=== PATIENT | female | born 1965 | race Caucasian/White ===

== ENCOUNTER 2018-04-09 00:10 | Emergency (ER) | payer SELFPAY ==
[~2018-04-09] VITALS: Ht 162.6 cm; Wt 51.7 kg
[2018-04-09] MEDS ORDERED: MORPHINE 4 MG/ML INJ. SYRINGE IVP ONE (00:15)
[2018-04-09] MEDS ORDERED: PROCHLORPERAZINE EDISYLATE 10 MG/2 ML VIAL IVP ONE (00:15)
[2018-04-09 00:18] VITALS: BP_SYST 139
[2018-04-09 06:30] VITALS: BP_SYST 133
== END 2018-04-09 06:30 | disposition home or self-care (01) ==
LOC: SED 00:10
DX: G43.909 Migraine, unspecified, not intractable, without status migrainosus (principal); Z59.0 Homelessness
CPT/HCPCS: 96374; 96375; 99283; J0780; J2270

== ENCOUNTER 2019-10-07 06:29 | Emergency (ER) | payer BC, SELFPAY ==
[~2019-10-07] VITALS: Ht 165.1 cm; Wt 49.9 kg
[2019-10-07 06:42] VITALS: BP_SYST 108
--- NOTE | 2019-10-07 06:46 | NUR ---
Placed in room 5 . To gown for exam. Side rails up.
--- NOTE | 2019-10-07 06:50 | NUR ---
ER at bedside examining patient.
--- NOTE | 2019-10-07 06:55 | NUR ---
Pt bib by [employer] and placed on 5150 for SI x today. Pt also reports cough x 2 months. Pt was taken to [facility] but was sent to [facility] for clearence and COVID test. Pt asked if she had a plan, pt states no current plan but formulating a plan. As per 5150 pt has a hx of depression and has not taken her meds. Denies PMH.
--- NOTE | 2019-10-07 06:57 | NUR ---
Security wanded patient.
--- NOTE | 2019-10-07 06:59 | NUR ---
COVID SWAB SENT TO LAB.
--- NOTE | 2019-10-07 07:05 | NUR ---
Report given to MARY Torrez and MARY Garza for continuation of care.
--- NOTE | 2019-10-07 07:10 | NUR ---
report received from Monica HERNANDEZ. Pt is in stable condition
--- NOTE | 2019-10-07 07:30 | NUR ---
PT RESTING COMFORTABLY IN BED, V/S STABLE. DENIES ANY PAIN
[2019-10-07 07:40] LABS: BASOPHILS % (AUTO) 0.8 % (0.0-2.0); EOSINOPHILS # (AUTO) 0.1 K/uL (0.0-0.4); EOSINOPHILS % (AUTO) 1.5 % (0.0-4.0); HEMOGLOBIN 14.7 g/dL (12.0-16.0); LYMPHOCYTES % (AUTO) 42.6 % (20.5-51.5); MEAN CORPUSCULAR HEMOGLOBIN 29 pg (27-31); MEAN CORPUSCULAR HGB CONC 32 % (32-36); MEAN CORPUSCULAR VOLUME 90 fL (79.0-98.0); MONOCYTES # (AUTO) 0.4 K/uL (0.0-1.0); MONOCYTES % (AUTO) 7.9 % (1.7-9.3); NEUTROPHILS # (AUTO) 2.2 K/uL (1.8-7.7); NEUTROPHILS % (AUTO) 47.2 % (40.0-70.0); PLATELET COUNT (AUTO) 161 K/uL (130-430); RED BLOOD CELL COUNT(AUTO) 5.13 MIL/uL (4.2-6.2); RED CELL DISTRIBUTION WIDTH 14.5 % (9.0-15.0); WHITE BLOOD COUNT (AUTO) 4.7 K/uL (4.8-10.8)
[2019-10-07 08:15] LABS: ANION GAP 7 (5-15); CALCIUM 9.8 mg/dL (8.4-11.0); CHLORIDE 104 mmol/L (98-107); CREATININE 0.85 mg/dL (0.55-1.30); GLUCOSE 94 mg/dL (70-99); POTASSIUM 3.6 mmol/L (3.5-5.1); SODIUM SERUM 137 mmol/L (136-145); UREA NITROGEN, BLOOD 15 mg/dL (8-21)
[2019-10-07 08:17] LABS: GFR AFRICAN AMERICAN 89 mL/min (>90)
--- NOTE | 2019-10-07 08:30 | NUR ---
PT RESTING COMFORTABLY IN BED, V/S STABLE. DENIES ANY PAIN
[2019-10-07 08:34] LABS: ACETAMINOPHEN 6 ug/mL (1-30); ALANINE AMINOTRANSFERASE 36 U/L (12-78); ALBUMIN 3.4 g/dL (3.4-4.8); ALCOHOL, BLOOD < 3 mg/dL (<10); ASPARTATE AMINOTRANSFERASE 35 U/L (10-37); FREE T4 (FREE THYROXINE) 1.2 ng/dl (0.8-1.5); THYROID STIMULATING HORMONE 0.97 uIu/mL (0.36-3.74); TOTAL BILIRUBIN 0.4 mg/dL (0.0-1.0)
[2019-10-07 08:36] LABS: BILIRUBIN,URINE NEGATIVE (NEGATIVE); BLOOD, URINE NEGATIVE (NEGATIVE); COLOR,URINE YELLOW (YELLOW); GLUCOSE,URINE NEGATIVE (NEGATIVE); KETONES,URINE NEGATIVE (NEGATIVE); LEUKOCYTE ESTERASE ,URINE TRACE (NEGATIVE); NITRITE, URINE NEGATIVE (NEGATIVE); PROTEIN URINE NEGATIVE (NEGATIVE); UROBILINOGEN,URINE 0.2 (0.2-1.0)
--- NOTE | 2019-10-07 08:48 | NUR ---
BREAKFAST TRAY GIVEN TO PT, EATING IN BED
--- NOTE | 2019-10-07 09:00 | NUR ---
PT ATE 100% OF BREAKFAST TRAY
[2019-10-07 09:02] LABS: BARBITURATE, URINE NEGATIVE (NEG <=200); BENZODIAZEPINE, URINE NEGATIVE (NEG <=150); CANNABINOID, URINE POSITIVE (NEG <=50); COCAINE, URINE NEGATIVE (NEG <=150); METHAMPHETAMINES SCREEN,URINE NEGATIVE (NEG <=500); OPIATE, URINE NEGATIVE (NEG <=100); PHENCYCLIDINE SCREEN,URINE NEGATIVE (NEG <=25); UR TRICYCLIC ANTIDEPRESSANTS NEGATIVE (NEG <=300); URINE AMPHETAMINE POSITIVE (NEG <=500); URINE METHADONE NEGATIVE (NEG <=200); URINE OXYCODONE SCREEN NEGATIVE (NEG <=100); URINE PROPOXYPHENE SCREEN NEGATIVE (NEG <=300)
[2019-10-07 09:06] LABS: CLARITY/URINE CLOUDY (CLEAR)
[2019-10-07 09:08] LABS: BACTERIA,URINE RARE /HPF (None Seen); RBC,URINE 0-3 /HPF (0-3)
[2019-10-07 09:09] LABS: URINE AMORPHOUS PHOSPHATES 4+ /HPF (None Seen)
--- NOTE | 2019-10-07 09:30 | NUR ---
PT RESTING COMFORTABLY IN BED, V/S STABLE. DENIES ANY PAIN
--- NOTE | 2019-10-07 10:28 | NUR ---
DR. BELLAMY AT THE BEDSIDE
--- NOTE | 2019-10-07 10:30 | NUR ---
PT RESTING COMFORTABLY IN BED, V/S STABLE.
--- NOTE | 2019-10-07 11:30 | NUR ---
PT RESTING COMFORTABLY IN BED, V/S STABLE. DENIES ANY PAIN
--- NOTE | 2019-10-07 12:30 | NUR ---
PT RESTING COMFORTABLY IN BED SLEEPING
--- NOTE | 2019-10-07 13:30 | NUR ---
PT RESTING COMFORTABLY IN BED, NO S/SX OF DISTRESS
--- NOTE | 2019-10-07 13:45 | NUR ---
PT EATING LUNCH IN BED, RESTING COMFORTABLY
[2019-10-07] MEDS ORDERED: LORazepam 1 MG TABLET PO ONE (14:45)
[2019-10-07] MEDS ORDERED: HALOPERIDOL LACTATE 5 MG/ML VIAL IM ONE (15:00)
--- NOTE | 2019-10-07 15:02 | NUR ---
PT BECAME RESTLESS AND TEARFUL, REPORTS HEARING VOICES. MD ORDERED HALDOL AND ATIVAN FOR PT. TOLERATED BOTH WELL
--- NOTE | 2019-10-07 16:15 | NUR ---
pt is sleeping in bed
--- NOTE | 2019-10-07 17:20 | NUR ---
PT SLEEPING IN BED, NO S/SX OF DISTRESS, V/S STABLE
--- NOTE | 2019-10-07 18:00 | NUR ---
PT GIVEN DINNER TRAY, RESTING IN BED COMFORTABLY
--- NOTE | 2019-10-07 19:00 | NUR ---
PT SLEEPING IN BED
--- NOTE | 2019-10-07 19:10 | NUR ---
REPORT GIVEN TO MARY HUGHES ENDORSING CONINTUATION OF CARE
--- NOTE | 2019-10-07 20:06 | NUR ---
VSS no s/s of acute distress Resting on gurney rails up
--- NOTE | 2019-10-07 21:12 | NUR ---
Pt continue to be confused and cannot hold consistant conversation
--- NOTE | 2019-10-07 22:18 | NUR ---
Pt resting on gurney rails up, Pt states " thank you for helping me."
--- NOTE | 2019-10-07 23:23 | NUR ---
Dr. Chavez bedside for pt update
--- NOTE | 2019-10-08 00:31 | NUR ---
Pt resting on gurney rails up, with no s/s of acute distress noted
--- NOTE | 2019-10-08 02:30 | NUR ---
Pt able to safely use restroom to and from with supervision
--- NOTE | 2019-10-08 04:15 | NUR ---
Pt remains completely COVID symptoms free. Stating " feeling ok right now "
--- NOTE | 2019-10-08 05:38 | NUR ---
COVID results remains Pending Status
--- NOTE | 2019-10-08 07:20 | NUR ---
report received from Scottie HERNANDEZ. Pt is in stable condition. Currently waiting for COVID test results.
--- NOTE | 2019-10-08 08:30 | NUR ---
PT IS SLEEPING IN BED
--- NOTE | 2019-10-08 09:30 | NUR ---
PT SLEEPING IN BED, NO S/SX DISTRESS
--- NOTE | 2019-10-08 10:30 | NUR ---
Juliet burton in [facility] - 10/08/19 at 1151 by SDNURGD pt is sleeping in bed.
--- NOTE | 2019-10-08 10:30 | NUR ---
Patient resting quietly. No acute distress noted. Vital signs within normal range.
--- NOTE | 2019-10-08 11:30 | NUR ---
pt is sleeping in bed
--- NOTE | 2019-10-08 12:35 | NUR ---
Pt sleeping at this time, no s/s of distress noted
--- NOTE | 2019-10-08 13:30 | NUR ---
PT IS SLEEPING IN BED
--- NOTE | 2019-10-08 14:20 | NUR ---
Contacted [facility], spoke with Carlee, regarding placement for patient. Recieved return call, they are unable to take the patient related to age and patients insurance.
--- NOTE | 2019-10-08 14:25 | NUR ---
Called [facility], spoke with Dai, no bed available for tonight, no discharges until 10/08.
--- NOTE | 2019-10-08 14:28 | NUR ---
PT IS SLEEPING IN BED
--- NOTE | 2019-10-08 14:37 | NUR ---
[facility], spoke with , no beds available for tonight for adult females.
--- NOTE | 2019-10-08 15:35 | NUR ---
pt is resting in bed.
--- NOTE | 2019-10-08 16:00 | NUR ---
Contacted psychiatric facilities regarding placement for patient on 5149: Facilities called: [facility]-spoke with Carlee, cannot take due to insurance [facility]-spoke with Dai, [facility], spoke with , no bed available [place]-no beds available, spoke with China Whiting [facility]-no beds available, spoke with [facility]-does not accept patients insurance Information is faxed to [facility]-no beds available [facility]-spoke with Emmanuel, full to capacity [facility]-full to capacity [facility]-no availability [facility]-spoke with Nasrin, faxed information, no beds expected for today, possibly tomorrow [place]-not available related to patient insurance [facility]-Faxed to [facility], unable to accept related to insurance [facility] [place]-Faxed information, awaiting call regarding acceptance [facility]-Faxed information to intake, awaiting call regarding acceptance [facility]-Spoke with [facility], unable to accept patient regarding insurance [place]-no beds available at this time [facility]-spoke with Dwaine, faxed information, no beds available at this time [facility]-No bed available [facility]-no bed availability
--- NOTE | 2019-10-08 16:30 | NUR ---
SLEEPING IN BED
--- NOTE | 2019-10-08 17:16 | NUR ---
Spoke with Alysia at [facility], they may be able to receive patient, requested additional information of face sheet, 5150, and covid test results. Patient information sent as requested, awaiting return call.
--- NOTE | 2019-10-08 17:30 | NUR ---
SLEEPING IN BED
--- NOTE | 2019-10-08 17:30 | NUR ---
Received transfer information from Alysia at [facility]. Patient accepted at [facility] Report can be given at [phone] Number for report: [phone] Dr. Bhatt Accepting
--- NOTE | 2019-10-08 18:40 | NUR ---
REPORT GIVEN TO MERLYN,RN @ [facility] FOR TRANSFER OF PT TO INPATIENT PSYCH.
[2019-10-08 18:49] VITALS: BP_SYST 150
--- NOTE | 2019-10-08 19:31 | NUR ---
CARE ENDORSED TO JOSSELIN HERNANDEZ
--- NOTE | 2019-10-08 21:13 | NUR ---
Patient to be transferred to [facility]. Is being transferred due to higher level of care. Receiving facility has accepting physician and available space. ER physician has signed transfer form. Patient or responsible alliance party has agreed to transfer and signed form. Patient belongings inventoried and will be sent with patient. Copy of nursing notes, lab reports, EKG, Physicians Orders and X-rays to be sent with patient. Report called to at receiving facility. Receiving physician is . [facility] ambulance service has been called for transfer.
== END 2019-10-08 21:13 ==
LOC: SED 06:29
DX: R45.851 Suicidal ideations (principal); Z03.818 Encounter for observation for suspected exposure to other biological agents ruled out; Z88.8 Allergy status to other drugs, medicaments and biological substances
CPT/HCPCS: 80053; 80307; 81000; 82550; 84439; 84443; 85025; 93005; 96372; 99285; C9803; G0480; G0481; G0482; J1630; U0003